=== PATIENT | male | born 1935 | race Caucasian/White ===

== ENCOUNTER 2021-04-21 15:02 | Inpatient (IN) | payer MEDICARE, BC ==
[2021-04-21] MEDS ORDERED: Sodium Chloride 0.9% 10 ML Syringe FLUSH PRN (16:23)
[2021-04-21] MEDS ORDERED: Lactated Ringers 1,000 ML IV SCH (16:30)
--- NOTE | 2021-04-21 16:37 | EDM.PDOC ---
<Daniela Garduno - Last Filed: 04/22/21 09:19> ED HPI GENERAL MEDICAL PROBLEM - General Chief Complaint: Fever Stated Complaint: [facility] Time Seen by Provider: 04/21/21 15:20 Source of Information: Reports: Patient History Limitations: Reports: No Limitations, Other (ED vital signs reveal a temp of 100.6, pulse of 103, respiratory rate 26, blood pressure 195/102, pulse ox 93% on room air.) - History of Present Illness INITIAL COMMENTS - FREE TEXT/NARRATIVE: 85-year-old male presents to the emergency department today with complaints of weakness, fever and cough that started this morning. 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 He sees Dr. Murrell, oncologist at [facility], for his cancer treatment. Approximately 1 month ago he was started on oral chemotherapy drugs, Taflinar and Mekinist. Patient states that about 4 days ago he developed urinary incontinence which is new for him. He denies any burning associated with this. He denies any recent fever or chills, nausea, vomiting or diarrhea. He denies any abdominal pain. He states he normally has issues with constipation however he did have a bowel movement today. Prior to today had been about 2 days since his previous bowel movement. He denies any black or bloody stools. States that starting about this afternoon he had new onset generalized weakness and cough. Patient states he has had his Covid vaccination. The patient's primary care physician is Dr. Martinez, at [facility]. - Related Data Allergies Allergy/AdvReac Type Severity Reaction Status Date / Time No Known Allergies Allergy Verified 04/22/21 01:57 Home Meds: Home Meds Aspirin 81 mg PO DAILY 04/21/21 [History] Dabrafenib Mesylate [Tafinlar] 150 mg PO BID 04/21/21 [History] Famotidine 40 mg PO DAILY 04/21/21 [History] Levothyroxine 175 mcg PO ACBREAKFAST 04/21/21 [History] Trametinib Dimethyl Sulfoxide [Mekinist] 2 mg PO DAILY 04/21/21 [History] Past Medical History Oncologic (Cancer) History: Reports: Metastatic, Thyroid - Past Surgical History Endocrine Surgical History: Reports: Thyroid Biopsy Musculoskeletal Surgical History: Reports: Hip Replacement, Knee Replacement, Ot her (See Below) Other Musculoskeletal Surgeries/Procedures:: ankle surgery Social & Family History - Tobacco Use Tobacco Use Status *Q: Never Tobacco User Second Hand Smoke Exposure: No - Recreational Drug Use Recreational Drug Use: No ED ROS GENERAL - Review of Systems Review Of Systems: See Below Constitutional: Reports: Fever, Chills, Weakness. Denies: Decreased Appetite HEENT: Reports: No Symptoms Respiratory: Reports: Shortness of Breath, Wheezing, Cough, Sputum. Denies: Pleuritic Chest Pain Cardiovascular: Reports: Dyspnea on Exertion. Denies: Chest Pain, Edema, Orthopnea, Palpitations Endocrine: Reports: No Symptoms GI/Abdominal: Reports: Constipation. Denies: Abdominal Pain, Diarrhea, Decreased Appetite, Nausea, Vomiting : Reports: Incontinence. Denies: Dysuria, Flank Pain, Frequency, Hematuria, Urgency Musculoskeletal: Reports: Other (Generalized weakness) Skin: Reports: No Symptoms Neurological: Reports: No Symptoms. Denies: Headache Psychiatric: Reports: No Symptoms Hematologic/Lymphatic: Reports: No Symptoms Immunologic: Reports: No Symptoms ED EXAM, GENERAL - Physical Exam Exam: See Below Exam Limited By: No Limitations General Appearance: Alert, WD/WN, Mild Distress Ears: Normal External Exam, Hearing Grossly Normal Nose: Normal Inspection Throat/Mouth: Normal Inspection, Normal Lips, Normal Voice, No Airway Compromise Head: Atraumatic Neck: Normal Inspection, Supple Respiratory/Chest: No Respiratory Distress, No Accessory Muscle Use, Chest Non- Tender, Rales, Rhonchi, Wheezing. No: Lungs Clear, Normal Breath Sounds Cardiovascular: Normal Peripheral Pulses, Regular Rate, Rhythm, No Edema, No Murmur (Difficult to exclude due to course lung sounds), Tachycardia Peripheral Pulses: 2+: Radial (L), Radial (R) GI/Abdominal: Normal Bowel Sounds, Soft, Non-Tender, No Distention (Male) Exam: Deferred Rectal (Males) Exam: Deferred Back Exam: Normal Inspection Extremities: Normal Inspection, Non-Tender, No Pedal Edema, Normal Capillary Refill Neurological: Alert, Oriented, Normal Cognition Psychiatric: Normal Affect, Normal Mood Skin Exam: Warm (Skin is hot to touch), Dry, Intact, Normal Color, No Rash Lymphatic: No Adenopathy Course - Vital Signs Text/Narrative:: Patient presents with new onset fever, cough, and generalized weakness that started this afternoon. Also had urinary incontinence that started 4 days ago and this is new for him. 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 Currently taking oral chemotherapy. He has had his Covid vaccine. I have ordered labs from the 1 hour septic bundle as the patient is tachycardic, tachypneic and does have a fever. - Re-Assessments/Exams Free Text/Narrative Re-Assessment/Exam: 04/21/21 16:55 Patient does have a low-grade temp of 100.6. I discussed ordering Tylenol with him and his son states that he was told there is some kind of interaction with his oral chemotherapy meds and Tylenol. I have had our hospital pharmacist look into this and she cannot find any contraindication to these meds and Tylenol. Patient will receive 650 mg of Tylenol. Departure - Departure Disposition: Admitted As Inpatient 66 Clinical Impression: Pneumonia Qualifiers: Pneumonia type: due to unspecified organism Laterality: right Lung location: lower lobe of lung Qualified Code(s): J18.9 - Pneumonia, unspecified organism - Discharge Information Sepsis Event Note (ED) - Evaluation Sepsis Screening Result: Possible Sepsis Risk <Marita Braga - Last Filed: 04/22/21 21:56> #1 Interpretation EKG Date: 04/21/21 Time: 17:42 Rhythm: NSR Rate (Beats/Min): 84 [place]: Normal P-Wave: Present QRS: RBBB (incomplete) ST-T: Normal QT: Normal EKG Interpretation Comments: multiform ventricular complexes EKG interpreted by Dr. Davila Course - Vital Signs Last Recorded V/S: Last Vital Signs Temp 98.1 F 04/22/21 14:22 Pulse 76 04/22/21 14:22 Resp 20 04/22/21 14:22 BP 148/83 H 04/22/21 14:22 Pulse Ox 94 L 04/22/21 14:22 - Orders/Labs/Meds Orders: Medication Orders Enoxaparin Sodium (Enoxaparin 40 Mg/0.4 Ml Syringe) 40 mg SUBCUT Q24H [facility] Last Admin: 04/22/21 20:45 Dose: 40 mg Documented by: Admin: 04/21/21 22:33 Dose: 40 mg Documented by: WOODROW Famotidine (Famotidine 20 Mg Tab) 20 mg PO DAILY [facility] Last Admin: 04/22/21 08:57 Dose: 20 mg Documented by: DALIA Ceftriaxone Sodium 2 gm/ (Sodium Chloride) 100 mls @ 200 mls/hr IV Q24H [facility] Last Admin: 04/22/21 16:16 Dose: 200 mls/hr Documented by: DALIA Levothyroxine Sodium (Levothyroxine 100 Mcg Tab) 100 mcg PO ACBREAKFAST [facility] Last Admin: 04/22/21 08:57 Dose: 100 mcg Documented by: DALIA Levothyroxine Sodium (Levothyroxine 75 Mcg Tab) 75 mcg PO ACBREAKFAST [facility]ONE Last Admin: 04/22/21 08:57 Dose: 75 mcg Documented by: DALIA Dabrafenib Mesylate [Tafinlar] 75 Mg Cap Ptom 0 mg PO BID [facility] Trametinib Dimethyl Sulfoxide [Mekinist] 2 Mg Tab Ptom 0 mg PO DAILY [facility] Sodium Chloride (Sodium Chloride 0.9% 10 Ml Syringe) 10 ml FLUSH ASDIRECTED PRN PRN Reason: Keep Vein Open Last Admin: 04/21/21 17:10 Dose: 10 ml Documented by: TONE Sodium Chloride (Sodium Chloride 0.9% 10 Ml Syringe) 10 ml FLUSH ASDIRECTED [facility] Last Admin: 04/21/21 18:59 Dose: 10 ml Documented by: PATTI Labs: Laboratory Tests 04/21/21 04/21/21 04/21/21 Range/Units 15:15 16:45 16:45 WBC 11.39 H (4.23-9.07) K/mm3 RBC 4.15 L (4.63-6.08) M/mm3 Hgb 11.0 L (13.7-17.5) gm/dl Hct 34.7 L (40.1-51.0) % MCV 83.6 (79.0-92.2) fl MCH 26.5 (25.7-32.2) pg MCHC 31.7 L (32.2-35.5) g/dl RDW Std Deviation 57.5 H (35.1-43.9) fL Plt Count 166 (163-337) K/mm3 MPV 9.9 (9.4-12.3) fl Neutrophils % (Manual) 83 H (40-60) % Band Neutrophils % 6 (0-10) % Lymphocytes % (Manual) 7 L (20-40) % Atypical Lymphs % 0 % Monocytes % (Manual) 4 (2-10) % Eosinophils % (Manual) 0 L (0.8-7.0) % Basophils % (Manual) 0 L (0.2-1.2) Toxic Granulation Few Platelet Estimate Adequate Anisocytosis 1+ slight Ovalocytes 1+ slight RBC Morph Comment Not Reportable PT (9.7-12.0) SECONDS INR APTT (21.7-31.4) SECONDS D-Dimer, Quantitative (0.19-0.50) mg/L Sodium 134 L (136-145) mEq/L Potassium 3.9 (3.5-5.1) mEq/L Chloride 97 L (98-107) mEq/L Carbon Dioxide 27 (21-32) mEq/L Anion Gap 13.9 (5-15) BUN 22 H (7-18) mg/dL Creatinine 1.3 (0.7-1.3) mg/dL Est Cr Clr Drug Dosing 39.98 mL/min Estimated GFR (MDRD) 52 (>60) mL/min BUN/Creatinine Ratio 16.9 (14-18) Glucose 130 H (70-99) mg/dL Lactic Acid (0.4-2.0) mmol/L Calcium 9.0 (8.5-10.1) mg/dL Total Bilirubin 0.8 (0.2-1.0) mg/dL AST 24 (15-37) U/L ALT 21 (16-63) U/L Alkaline Phosphatase 116 (46-116) U/L Troponin I 0.211 H* (0.00-0.056) ng/mL C-Reactive Protein 4.7 H* (<1.0) mg/dL NT-Pro-B Natriuret Pep (0-450) pg/mL Total Protein 6.9 (6.4-8.2) g/dl Albumin 3.1 L (3.4-5.0) g/dl Globulin 3.8 gm/dL Albumin/Globulin Ratio 0.8 L (1-2) Urine Color Yellow (Yellow) Urine Appearance Clear (Clear) Urine pH 7.0 (5.0-8.0) Ur Specific [place] 1.025 (1.005-1.030) Urine Protein 2+ H (Negative) Urine Glucose (UA) Negative (Negative) Urine Ketones Negative (Negative) Urine Occult Blood Trace-intact H (Negative) Urine Nitrite Negative (Negative) Urine Bilirubin Negative (Negative) Urine Urobilinogen 0.2 (0.2-1.0) Ur Leukocyte Esterase Negative (Negative) Urine RBC 5-10 H (0-5) /hpf Urine WBC 0-5 (0-5) /hpf Ur Squamous Epith Cells 0-5 (0-5) /hpf Urine Bacteria Occasional (FEW) /hpf Urine Mucus Not seen (FEW) /hpf SARS-CoV-2 RNA (NINA) (NEGATIVE) 04/21/21 04/21/21 04/21/21 Range/Units 16:45 16:45 16:45 WBC (4.23-9.07) K/mm3 RBC (4.63-6.08) M/mm3 Hgb (13.7-17.5) gm/dl Hct (40.1-51.0) % MCV (79.0-92.2) fl MCH (25.7-32.2) pg MCHC (32.2-35.5) g/dl RDW Std Deviation (35.1-43.9) fL Plt Count (163-337) K/mm3 MPV (9.4-12.3) fl Neutrophils % (Manual) (40-60) % Band Neutrophils % (0-10) % Lymphocytes % (Manual) (20-40) % Atypical Lymphs % % Monocytes % (Manual) (2-10) % Eosinophils % (Manual) (0.8-7.0) % Basophils % (Manual) (0.2-1.2) Toxic Granulation Platelet Estimate Anisocytosis Ovalocytes RBC Morph Comment PT 11.2 (9.7-12.0) SECONDS INR 1.05 APTT 27.2 (21.7-31.4) SECONDS D-Dimer, Quantitative 2.26 H (0.19-0.50) mg/L Sodium (136-145) mEq/L Potassium (3.5-5.1) mEq/L Chloride (98-107) mEq/L Carbon Dioxide (21-32) mEq/L Anion Gap (5-15) BUN (7-18) mg/dL Creatinine (0.7-1.3) mg/dL Est Cr Clr Drug Dosing mL/min Estimated GFR (MDRD) (>60) mL/min BUN/Creatinine Ratio (14-18) Glucose (70-99) mg/dL Lactic Acid (0.4-2.0) mmol/L Calcium (8.5-10.1) mg/dL Total Bilirubin (0.2-1.0) mg/dL AST (15-37) U/L ALT (16-63) U/L Alkaline Phosphatase (46-116) U/L Troponin I (0.00-0.056) ng/mL C-Reactive Protein (<1.0) mg/dL NT-Pro-B Natriuret Pep 2504 H (0-450) pg/mL Total Protein (6.4-8.2) g/dl Albumin (3.4-5.0) g/dl Globulin gm/dL Albumin/Globulin Ratio (1-2) Urine Color (Yellow) Urine Appearance (Clear) Urine pH (5.0-8.0) Ur Specific [place] (1.005-1.030) Urine Protein (Negative) Urine Glucose (UA) (Negative) Urine Ketones (Negative) Urine Occult Blood (Negative) Urine Nitrite (Negative) Urine Bilirubin (Negative) Urine Urobilinogen (0.2-1.0) Ur Leukocyte Esterase (Negative) Urine RBC (0-5) /hpf Urine WBC (0-5) /hpf Ur Squamous Epith Cells (0-5) /hpf Urine Bacteria (FEW) /hpf Urine Mucus (FEW) /hpf SARS-CoV-2 RNA (NINA) (NEGATIVE) 04/21/21 04/21/21 04/21/21 Range/Units 16:55 17:09 19:10 WBC (4.23-9.07) K/mm3 RBC (4.63-6.08) M/mm3 Hgb (13.7-17.5) gm/dl Hct (40.1-51.0) % MCV (79.0-92.2) fl MCH (25.7-32.2) pg MCHC (32.2-35.5) g/dl RDW Std Deviation (35.1-43.9) fL Plt Count (163-337) K/mm3 MPV (9.4-12.3) fl Neutrophils % (Manual) (40-60) % Band Neutrophils % (0-10) % Lymphocytes % (Manual) (20-40) % Atypical Lymphs % % Monocytes % (Manual) (2-10) % Eosinophils % (Manual) (0.8-7.0) % Basophils % (Manual) (0.2-1.2) Toxic Granulation Platelet Estimate Anisocytosis Ovalocytes RBC Morph Comment PT (9.7-12.0) SECONDS INR APTT (21.7-31.4) SECONDS D-Dimer, Quantitative (0.19-0.50) mg/L Sodium (136-145) mEq/L Potassium (3.5-5.1) mEq/L Chloride (98-107) mEq/L Carbon Dioxide (21-32) mEq/L Anion Gap (5-15) BUN (7-18) mg/dL Creatinine (0.7-1.3) mg/dL Est Cr Clr Drug Dosing mL/min Estimated GFR (MDRD) (>60) mL/min BUN/Creatinine Ratio (14-18) Glucose (70-99) mg/dL Lactic Acid 0.7 (0.4-2.0) mmol/L Calcium (8.5-10.1) mg/dL Total Bilirubin (0.2-1.0) mg/dL AST (15-37) U/L ALT (16-63) U/L Alkaline Phosphatase (46-116) U/L Troponin I 0.195 H* (0.00-0.056) ng/mL C-Reactive Protein (<1.0) mg/dL NT-Pro-B Natriuret Pep (0-450) pg/mL Total Protein (6.4-8.2) g/dl Albumin (3.4-5.0) g/dl Globulin gm/dL Albumin/Globulin Ratio (1-2) Urine Color (Yellow) Urine Appearance (Clear) Urine pH (5.0-8.0) Ur Specific [place] (1.005-1.030) Urine Protein (Negative) Urine Glucose (UA) (Negative) Urine Ketones (Negative) Urine Occult Blood (Negative) Urine Nitrite (Negative) Urine Bilirubin (Negative) Urine Urobilinogen (0.2-1.0) Ur Leukocyte Esterase (Negative) Urine RBC (0-5) /hpf Urine WBC (0-5) /hpf Ur Squamous Epith Cells (0-5) /hpf Urine Bacteria (FEW) /hpf Urine Mucus (FEW) /hpf SARS-CoV-2 RNA (NINA) Negative (NEGATIVE) Meds: Medications Generic Name Dose Route Start Last Admin Trade Name Damaris PRN Reason Stop Dose Admin Enoxaparin Sodium 40 mg 04/21/21 22:00 04/22/21 20:45 Enoxaparin 40 Mg/0.4 Ml Syringe SUBCUT 40 mg Q24H RAMONE Administration Famotidine 20 mg 04/22/21 09:00 04/22/21 08:57 Famotidine 20 Mg Tab PO 20 mg DAILY RAMONE Administration Ceftriaxone Sodium 2 gm/ 100 mls @ 200 mls/hr 04/22/21 17:00 04/22/21 16:16 Sodium Chloride IV 200 mls/hr Q24H RAMONE Administration Levothyroxine Sodium 100 mcg 04/22/21 09:00 04/22/21 08:57 Levothyroxine 100 Mcg Tab PO 100 mcg ACBREAKFAST RAMONE Administration Levothyroxine Sodium 75 mcg 04/22/21 09:00 04/22/21 08:57 Levothyroxine 75 Mcg Tab PO 75 mcg ACBREAKFAST RAMONE Administration Dabrafenib Mesylate 0 mg 04/22/21 21:00 [Tafinlar] 75 Mg Cap PO Ptom BID RAMONE Trametinib Dimethyl 0 mg 04/23/21 09:00 Sulfoxide [Mekinist] PO 2 Mg Tab Ptom DAILY RAMONE Sodium Chloride 10 ml 04/21/21 16:23 04/21/21 17:10 Sodium Chloride 0.9% 10 Ml Syringe FLUSH 10 ml ASDIRECTED PRN Administration Keep Vein Open Sodium Chloride 10 ml 04/21/21 19:00 04/21/21 18:59 Sodium Chloride 0.9% 10 Ml Syringe FLUSH 10 ml ASDIRECTED RAMONE Administration Discontinued Medications Generic Name Dose Route Start Last Admin Trade Name Damaris PRN Reason Stop Dose Admin Acetaminophen 650 mg 04/21/21 16:55 04/21/21 17:10 Acetaminophen 325 Mg Tab PO 04/21/21 16:56 650 mg NOW ONE Administration Enoxaparin Sodium 30 mg 04/21/21 22:00 Enoxaparin 30 Mg/0.3 Ml Syringe SUBCUT Q24H RAMONE Lactated Ringer's 1,000 mls @ 75 mls/hr 04/21/21 16:30 04/21/21 17:10 Ringers, Lactated IV 126 mls/hr ASDIRECTED RAMONE Administration Ceftriaxone Sodium 2 gm/ 100 mls @ 200 mls/hr 04/21/21 17:14 04/21/21 17:28 Sodium Chloride IV 04/21/21 17:43 200 mls/hr ONETIME ONE Administration Sodium Chloride 100 mls @ 60 mls/hr 04/21/21 19:00 04/21/21 18:59 Normal Saline IV 60 mls/hr ASDIRECTED RAMONE Administration Iopamidol 100 ml 04/21/21 18:52 04/21/21 18:59 Iopamidol 755 Mg/Ml 100 Ml Bottle IVPUSH 04/21/21 18:53 100 ml ONETIME ONE Administration - Re-Assessments/Exams Free Text/Narrative Re-Assessment/Exam: 04/21/21 17:15 Care assumed from GERI Suarez. Official radiologist read of the chest x-ray impression as follows: 1. Density within the right lung base suspicious for possible pneumonia. 2. Slight atelectasis or minimal pleural effusion within the lateral left costophrenic angle. 3. Several small nodules within the right midlung which are nonspecific but likely incidental given the patient's age. Hematology is pending, however given patient's fever, tachycardia, and chest x- ray consistent with pneumonia. I have ordered Rocephin 2 g IV to be given now. 04/21/21 18:05 Hematology was significant for WBC elevated 11.39, hemoglobin low at 11.0, D- dimer elevated at 2.26, sodium 134, chloride 97, troponin elevated at 0.211, CRP 4.7, proBNP 2504. Urinalysis was negative for infection. EKG shows a normal sinus rhythm at 84 with no signs of acute ischemia. Based on these results, patient does not meet severe sepsis criteria. Lactic acid is normal at 0.7. Results discussed with patient. He reports that at no time has he experienced chest pain. He does report that his oncologist at [facility] told him that he may possibly have cancer within his heart muscle. Given his elevated D-dimer and troponin, I have ordered a CT angiogram of the chest to rule out PE. 04/21/211949 CT angiogram of the chest impression as follows 1. Multiple small pulmonary nodules within both sides of the chest. 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 No findings of pulmonary embolism. 3. Old bilateral rib fractures which appear healed. 4. Slight fibrosis in both lung bases. Repeat troponin came back lower at 0.195. Case was discussed with Dr. Yates, the rabbler on-call at [facility] and EKG images were sent to him. He recommended echocardiogram but did not remit recommend that we continue to trend troponins. Case was discussed with hospitalist, Dr. Padilla. He is excepted the patient for admission. 04/21/21 20:03 Nursing staff updated me that patient had a small amount of blood in his underwear and around his urethra. Patient reports that this is new for him. On exam, there is no visible bleeding or lesions to the external urethral meatus. Urinalysis did show some trace occult blood and RBCs but there is no evidence of infection. We will update the hospitalist. I also discussed patient's me dications with the son. He does not have his chemo medications with him, however he would like to contact his oncologist at [facility] tomorrow morning to decide if he should continue them at this time. If it is decided that he should, he will bring them. Departure - Departure Time of Disposition: 19:50 Condition: Fair
[2021-04-21] MEDS ORDERED: Acetaminophen 325 MG Tab PO ONE (16:55)
--- NOTE | 2021-04-21 16:57 | CR ---
Chest: Portable view of the chest was obtained. Comparison: No prior chest imaging is available. Focal density is noted within the right lung base. Minimal density within the lateral left costophrenic angle is seen. Minimal nodularity is noted within the upper right lung. Upper lungs are otherwise clear. Heart size is normal. Tortuous thoracic aorta is seen. Degenerative spurring is noted within the spine. Impression: 1. Density within the right lung base suspicious for possible pneumonia. 2. Slight atelectasis or minimal pleural effusion within the lateral left costophrenic angle. 3. Several small nodules within the right midlung which are nonspecific but likely incidental given the patient's age. Diagnostic code #3
[2021-04-21] MEDS ORDERED: cefTRIAXone 2 GM in Sodium Chloride 0.9% 100 ML IV ONE (17:14)
[2021-04-21] MEDS ORDERED: Iopamidol 755 Mg/ML 100 ML Bottle IVPUSH ONE (18:52)
[2021-04-21] MEDS ORDERED: Sodium Chloride 0.9% 100 ML IV SCH (19:00)
[2021-04-21] MEDS ORDERED: Sodium Chloride 0.9% 10 ML Syringe FLUSH SCH (19:00)
--- NOTE | 2021-04-21 19:11 | CT ---
CT chest Technique: Multiple axial sections through the chest were obtained. Intravenous contrast was utilized. Study has been performed as a pulmonary angiogram protocol. Findings: Pulmonary arteries are well-opacified. No filling defects are seen to indicate pulmonary embolism. Thoracic aorta shows no aneurysm. Atherosclerotic calcification is seen within the thoracic aorta. Mediastinum shows small lymph nodes which are felt to be within normal limits. No axillary adenopathy is seen. Mild coronary artery calcification seen. No pericardial thickening is seen. Small portion of the visualized upper abdominal structures show nothing acute. Multiple small pulmonary nodules are seen within both lung bases as well as within the upper lungs. These all measure less than 1 cm. Mild focal density within the right lung base is seen most likely representing an area of fibrosis. Bone window settings were reviewed which show no acute osseous finding. Old bilateral rib fractures are noted. Scattered degenerative change is seen within the spine. Impression: 1. Multiple small pulmonary nodules within both sides of the chest. These are nonspecific but given that these are fairly similar in size most likely represent diffuse granulomatous disease. 2. No findings of pulmonary embolism. 3. Old bilateral rib fractures which appear healed. 4. Slight fibrosis within both lung bases. Diagnostic code #3
[2021-04-21] MEDS ORDERED: Enoxaparin 30 MG/0.3 ML Syringe SUBCUT SCH (22:00)
[2021-04-21] MEDS: Enoxaparin 40 MG/0.4 ML Syringe SUBCUT SCH (22:33)
--- NOTE | 2021-04-22 06:50 | PCM.HP.2 ---
H&P History of Present Illness - General Date of Service: 04/22/21 Admit Problem/Dx: Admission Diagnosis/Problem Admission Diagnosis/Problem Pneumonia Source of Information: Patient History Limitations: Reports: No Limitations - History of Present Illness Initial Comments - Free Text/Narative: The patient is an 85-year-old gentleman who had presented to the emergency department via EMS out of concern for fever and fatigue. 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 The patient has been started on chemotherapy orally. The patient had denied any cough or production of sputum. The patient has no other specific aggravating or relieving factors. Onset of Symptoms: Reports: Gradual Duration of Symptoms: Reports: Day(s): Location: Reports: Generalized Severity: Mild Improves with: Reports: Rest Worsens with: Reports: Movement Context: Reports: Other (Thyroid cancer) Associated Symptoms: Reports: Malaise, Weakness - Related Data Allergies/Adverse Reactions: Allergies Allergy/AdvReac Type Severity Reaction Status Date / Time No Known Allergies Allergy Verified 04/22/21 01:57 Home Medications: Home Meds Aspirin 81 mg PO DAILY 04/21/21 [History] Dabrafenib Mesylate [Tafinlar] 150 mg PO BID 04/21/21 [History] Famotidine 40 mg PO DAILY 04/21/21 [History] Levothyroxine 175 mcg PO ACBREAKFAST 04/21/21 [History] Trametinib Dimethyl Sulfoxide [Mekinist] 2 mg PO DAILY 04/21/21 [History] Past Medical History HEENT History: Reports: None Cardiovascular History: Reports: None Respiratory History: Reports: None Gastrointestinal History: Reports: None Genitourinary History: Reports: None Musculoskeletal History: Reports: None Neurological History: Reports: None Psychiatric History: Reports: None Endocrine/Metabolic History: Reports: Hypothyroidism Hematologic History: Reports: None Immunologic History: Reports: None Oncologic (Cancer) History: Reports: Metastatic, Thyroid Dermatologic History: Reports: None - Past Surgical History Head Surgeries/Procedures: Reports: Other (See Below) Endocrine Surgical History: Reports: Thyroid Biopsy, Other (See Below) (9 different thyroid related surgical dissections) Musculoskeletal Surgical History: Reports: Hip Replacement, Knee Replacement, Other (See Below) Other Musculoskeletal Surgeries/Procedures:: ankle surgery Social & Family History - Tobacco Use Tobacco Use Status *Q: Never Tobacco User Second Hand Smoke Exposure: No - Recreational Drug Use Recreational Drug Use: No - Living Situation & Occupation Living situation: Reports: H&P Review of Systems - Review of Systems: Review Of Systems: See Below General: Reports: Malaise, Weakness, Fatigue HEENT: Reports: No Symptoms Pulmonary: Reports: Shortness of Breath Cardiovascular: Reports: No Symptoms Gastrointestinal: Reports: No Symptoms Genitourinary: Reports: No Symptoms Musculoskeletal: Reports: No Symptoms Skin: Reports: No Symptoms Psychiatric: Reports: No Symptoms Neurological: Reports: No Symptoms Hematologic/Lymphatic: Reports: No Symptoms Immunologic: Reports: No Symptoms Exam - Exam Exam: See Below - Vital Signs Vital Signs: Last Vital Signs Temp 36.4 C 04/22/21 03:18 Pulse 73 04/22/21 03:18 Resp 20 04/22/21 03:18 BP 148/84 H 04/22/21 03:18 Pulse Ox 95 04/22/21 03:18 Weight: 68.039 kg - Exam Quality Assessment: No: Supplemental Oxygen General: Alert, Oriented HEENT: Conjunctiva Clear, EACs Clear, EOMI, Hearing Intact, PERRLA. No: Mucosa Moist & [place] (Dry) Neck: Trachea Midline. No: Supple (Multiple thyroid surgeries with dissection) Lungs: Crackles, Rales Cardiovascular: Regular Rate, Regular Rhythm GI/Abdominal Exam: Normal Bowel Sounds, Soft, Non-Tender, No Distention (Male) Exam: Deferred Rectal (Males) Exam: Deferred Back Exam: Normal Inspection, Full Range of Motion Extremities: Normal Inspection, No Pedal Edema Skin: Warm, Dry, Intact Neuro Extensive - Motor, Sensory, Reflexes: CN II-XII Intact Psychiatric: Alert, Normal Affect - Patient Data Lab Results Last 24 hrs: Laboratory Results - last 24 hr 04/21/21 04/21/21 04/21/21 Range/Units 15:15 16:45 16:45 WBC 11.39 H (4.23-9.07) K/mm3 RBC 4.15 L (4.63-6.08) M/mm3 Hgb 11.0 L (13.7-17.5) gm/dl Hct 34.7 L (40.1-51.0) % MCV 83.6 (79.0-92.2) fl MCH 26.5 (25.7-32.2) pg MCHC 31.7 L (32.2-35.5) g/dl RDW Std Deviation 57.5 H (35.1-43.9) fL Plt Count 166 (163-337) K/mm3 MPV 9.9 (9.4-12.3) fl Neutrophils % (Manual) 83 H (40-60) % Band Neutrophils % 6 (0-10) % Lymphocytes % (Manual) 7 L (20-40) % Atypical Lymphs % 0 % Monocytes % (Manual) 4 (2-10) % Eosinophils % (Manual) 0 L (0.8-7.0) % Basophils % (Manual) 0 L (0.2-1.2) Toxic Granulation Few Platelet Estimate Adequate Anisocytosis 1+ slight Ovalocytes 1+ slight RBC Morph Comment Not Reportable PT (9.7-12.0) SECONDS INR APTT (21.7-31.4) SECONDS D-Dimer, Quantitative (0.19-0.50) mg/L Sodium 134 L (136-145) mEq/L Potassium 3.9 (3.5-5.1) mEq/L Chloride 97 L (98-107) mEq/L Carbon Dioxide 27 (21-32) mEq/L Anion Gap 13.9 (5-15) BUN 22 H (7-18) mg/dL Creatinine 1.3 (0.7-1.3) mg/dL Est Cr Clr Drug Dosing 39.98 mL/min Estimated GFR (MDRD) 52 (>60) mL/min BUN/Creatinine Ratio 16.9 (14-18) Glucose 130 H (70-99) mg/dL Lactic Acid (0.4-2.0) mmol/L Calcium 9.0 (8.5-10.1) mg/dL Total Bilirubin 0.8 (0.2-1.0) mg/dL AST 24 (15-37) U/L ALT 21 (16-63) U/L Alkaline Phosphatase 116 (46-116) U/L Troponin I 0.211 H* (0.00-0.056) ng/mL C-Reactive Protein 4.7 H* (<1.0) mg/dL NT-Pro-B Natriuret Pep (0-450) pg/mL Total Protein 6.9 (6.4-8.2) g/dl Albumin 3.1 L (3.4-5.0) g/dl Globulin 3.8 gm/dL Albumin/Globulin Ratio 0.8 L (1-2) Urine Color Yellow (Yellow) Urine Appearance Clear (Clear) Urine pH 7.0 (5.0-8.0) Ur Specific [place] 1.025 (1.005-1.030) Urine Protein 2+ H (Negative) Urine Glucose (UA) Negative (Negative) Urine Ketones Negative (Negative) Urine Occult Blood Trace-intact H (Negative) Urine Nitrite Negative (Negative) Urine Bilirubin Negative (Negative) Urine Urobilinogen 0.2 (0.2-1.0) Ur Leukocyte Esterase Negative (Negative) Urine RBC 5-10 H (0-5) /hpf Urine WBC 0-5 (0-5) /hpf Ur Squamous Epith Cells 0-5 (0-5) /hpf Urine Bacteria Occasional (FEW) /hpf Urine Mucus Not seen (FEW) /hpf SARS-CoV-2 RNA (NINA) (NEGATIVE) 04/21/21 04/21/21 04/21/21 Range/Units 16:45 16:45 16:45 WBC (4.23-9.07) K/mm3 RBC (4.63-6.08) M/mm3 Hgb (13.7-17.5) gm/dl Hct (40.1-51.0) % MCV (79.0-92.2) fl MCH (25.7-32.2) pg MCHC (32.2-35.5) g/dl RDW Std Deviation (35.1-43.9) fL Plt Count (163-337) K/mm3 MPV (9.4-12.3) fl Neutrophils % (Manual) (40-60) % Band Neutrophils % (0-10) % Lymphocytes % (Manual) (20-40) % Atypical Lymphs % % Monocytes % (Manual) (2-10) % Eosinophils % (Manual) (0.8-7.0) % Basophils % (Manual) (0.2-1.2) Toxic Granulation Platelet Estimate Anisocytosis Ovalocytes RBC Morph Comment PT 11.2 (9.7-12.0) SECONDS INR 1.05 APTT 27.2 (21.7-31.4) SECONDS D-Dimer, Quantitative 2.26 H (0.19-0.50) mg/L Sodium (136-145) mEq/L Potassium (3.5-5.1) mEq/L Chloride (98-107) mEq/L Carbon Dioxide (21-32) mEq/L Anion Gap (5-15) BUN (7-18) mg/dL Creatinine (0.7-1.3) mg/dL Est Cr Clr Drug Dosing mL/min Estimated GFR (MDRD) (>60) mL/min BUN/Creatinine Ratio (14-18) Glucose (70-99) mg/dL Lactic Acid (0.4-2.0) mmol/L Calcium (8.5-10.1) mg/dL Total Bilirubin (0.2-1.0) mg/dL AST (15-37) U/L ALT (16-63) U/L Alkaline Phosphatase (46-116) U/L Troponin I (0.00-0.056) ng/mL C-Reactive Protein (<1.0) mg/dL NT-Pro-B Natriuret Pep 2504 H (0-450) pg/mL Total Protein (6.4-8.2) g/dl Albumin (3.4-5.0) g/dl Globulin gm/dL Albumin/Globulin Ratio (1-2) Urine Color (Yellow) Urine Appearance (Clear) Urine pH (5.0-8.0) Ur Specific [place] (1.005-1.030) Urine Protein (Negative) Urine Glucose (UA) (Negative) Urine Ketones (Negative) Urine Occult Blood (Negative) Urine Nitrite (Negative) Urine Bilirubin (Negative) Urine Urobilinogen (0.2-1.0) Ur Leukocyte Esterase (Negative) Urine RBC (0-5) /hpf Urine WBC (0-5) /hpf Ur Squamous Epith Cells (0-5) /hpf Urine Bacteria (FEW) /hpf Urine Mucus (FEW) /hpf SARS-CoV-2 RNA (NINA) (NEGATIVE) 04/21/21 04/21/21 04/21/21 Range/Units 16:55 17:09 19:10 WBC (4.23-9.07) K/mm3 RBC (4.63-6.08) M/mm3 Hgb (13.7-17.5) gm/dl Hct (40.1-51.0) % MCV (79.0-92.2) fl MCH (25.7-32.2) pg MCHC (32.2-35.5) g/dl RDW Std Deviation (35.1-43.9) fL Plt Count (163-337) K/mm3 MPV (9.4-12.3) fl Neutrophils % (Manual) (40-60) % Band Neutrophils % (0-10) % Lymphocytes % (Manual) (20-40) % Atypical Lymphs % % Monocytes % (Manual) (2-10) % Eosinophils % (Manual) (0.8-7.0) % Basophils % (Manual) (0.2-1.2) Toxic Granulation Platelet Estimate Anisocytosis Ovalocytes RBC Morph Comment PT (9.7-12.0) SECONDS INR APTT (21.7-31.4) SECONDS D-Dimer, Quantitative (0.19-0.50) mg/L Sodium (136-145) mEq/L Potassium (3.5-5.1) mEq/L Chloride (98-107) mEq/L Carbon Dioxide (21-32) mEq/L Anion Gap (5-15) BUN (7-18) mg/dL Creatinine (0.7-1.3) mg/dL Est Cr Clr Drug Dosing mL/min Estimated GFR (MDRD) (>60) mL/min BUN/Creatinine Ratio (14-18) Glucose (70-99) mg/dL Lactic Acid 0.7 (0.4-2.0) mmol/L Calcium (8.5-10.1) mg/dL Total Bilirubin (0.2-1.0) mg/dL AST (15-37) U/L ALT (16-63) U/L Alkaline Phosphatase (46-116) U/L Troponin I 0.195 H* (0.00-0.056) ng/mL C-Reactive Protein (<1.0) mg/dL NT-Pro-B Natriuret Pep (0-450) pg/mL Total Protein (6.4-8.2) g/dl Albumin (3.4-5.0) g/dl Globulin gm/dL Albumin/Globulin Ratio (1-2) Urine Color (Yellow) Urine Appearance (Clear) Urine pH (5.0-8.0) Ur Specific [place] (1.005-1.030) Urine Protein (Negative) Urine Glucose (UA) (Negative) Urine Ketones (Negative) Urine Occult Blood (Negative) Urine Nitrite (Negative) Urine Bilirubin (Negative) Urine Urobilinogen (0.2-1.0) Ur Leukocyte Esterase (Negative) Urine RBC (0-5) /hpf Urine WBC (0-5) /hpf Ur Squamous Epith Cells (0-5) /hpf Urine Bacteria (FEW) /hpf Urine Mucus (FEW) /hpf SARS-CoV-2 RNA (NINA) Negative (NEGATIVE) 04/22/21 04/22/21 Range/Units 00:11 05:45 WBC 7.54 (4.23-9.07) K/mm3 RBC 4.22 L (4.63-6.08) M/mm3 Hgb 11.0 L (13.7-17.5) gm/dl Hct 35.6 L (40.1-51.0) % MCV 84.4 (79.0-92.2) fl MCH 26.1 (25.7-32.2) pg MCHC 30.9 L (32.2-35.5) g/dl RDW Std Deviation 58.5 H (35.1-43.9) fL Plt Count 171 (163-337) K/mm3 MPV 10.1 (9.4-12.3) fl Neutrophils % (Manual) (40-60) % Band Neutrophils % (0-10) % Lymphocytes % (Manual) (20-40) % Atypical Lymphs % % Monocytes % (Manual) (2-10) % Eosinophils % (Manual) (0.8-7.0) % Basophils % (Manual) (0.2-1.2) Toxic Granulation Platelet Estimate Anisocytosis Ovalocytes RBC Morph Comment PT (9.7-12.0) SECONDS INR APTT (21.7-31.4) SECONDS D-Dimer, Quantitative (0.19-0.50) mg/L Sodium (136-145) mEq/L Potassium (3.5-5.1) mEq/L Chloride (98-107) mEq/L Carbon Dioxide (21-32) mEq/L Anion Gap (5-15) BUN (7-18) mg/dL Creatinine (0.7-1.3) mg/dL Est Cr Clr Drug Dosing mL/min Estimated GFR (MDRD) (>60) mL/min BUN/Creatinine Ratio (14-18) Glucose (70-99) mg/dL Lactic Acid (0.4-2.0) mmol/L Calcium (8.5-10.1) mg/dL Total Bilirubin (0.2-1.0) mg/dL AST (15-37) U/L ALT (16-63) U/L Alkaline Phosphatase (46-116) U/L Troponin I 0.198 H* (0.00-0.056) ng/mL C-Reactive Protein (<1.0) mg/dL NT-Pro-B Natriuret Pep (0-450) pg/mL Total Protein (6.4-8.2) g/dl Albumin (3.4-5.0) g/dl Globulin gm/dL Albumin/Globulin Ratio (1-2) Urine Color (Yellow) Urine Appearance (Clear) Urine pH (5.0-8.0) Ur Specific [place] (1.005-1.030) Urine Protein (Negative) Urine Glucose (UA) (Negative) Urine Ketones (Negative) Urine Occult Blood (Negative) Urine Nitrite (Negative) Urine Bilirubin (Negative) Urine Urobilinogen (0.2-1.0) Ur Leukocyte Esterase (Negative) Urine RBC (0-5) /hpf Urine WBC (0-5) /hpf Ur Squamous Epith Cells (0-5) /hpf Urine Bacteria (FEW) /hpf Urine Mucus (FEW) /hpf SARS-CoV-2 RNA (NINA) (NEGATIVE) Result Diagrams: 04/22/21 05:45 04/22/21 05:45 Sepsis Event Note - Evaluation Sepsis Screening Result: No Definite Risk - Focused Exam Vital Signs: Vital Signs Temp Pulse Resp BP Pulse Ox 04/22/21 03:18 36.4 C 73 20 148/84 H 95 04/21/21 22:52 36.4 C 82 20 140/67 94 L 04/21/21 21:06 36.6 C 69 20 117/72 95 - Problem List (1) Pneumonia SNOMED Code(s): 088836383 ICD Code: J18.9 - PNEUMONIA, UNSPECIFIED ORGANISM Status: Acute Current Visit: Yes Qualifiers: Pneumonia type: due to unspecified organism Laterality: right Lung location: lower lobe of lung Qualified Code(s): J18.9 - Pneumonia, unspecified organism (2) Thyroid cancer SNOMED Code(s): 055749186 ICD Code: C73 - MALIGNANT NEOPLASM OF THYROID GLAND Status: Chronic Priority: High Current Visit: Yes Problem List Initiated/Reviewed/Updated: Yes Orders Last 24hrs: Active Orders 24 hr Category Date Time Status Admission Status [Patient Status] [ADT] Routine ADT 04/21/21 23:35 Active Activity as Tolerated [RC] .Routine Care 04/21/21 21:43 Active Blood Pressure Mgt: Sepsis [RC] [id number] Care 04/21/21 16:26 Active Oxygen Therapy Adult [Oxygen Therapy] [RC] ASDIRECTED Care 04/21/21 21:41 Active Regular Diet [DIET] Diet 04/22/21 Breakfast Active CMP [COMPREHENSIVE METABOLIC PN,CMP] [CHEM] Routine Lab 04/22/21 05:45 Received CULTURE BLOOD [BC] Stat Lab 04/21/21 16:45 Received CULTURE BLOOD [BC] Stat Lab 04/21/21 16:55 Received CULTURE SPUTUM + SMEAR [RM] Stat Lab 04/21/21 16:23 Ordered TROPONIN I [CHEM] Routine Lab 04/22/21 05:45 Received Enoxaparin [Lovenox] Med 04/21/21 22:00 Active 40 mg SUBCUT Q24H Sodium Chloride 0.9% [Saline Flush] Med 04/21/21 19:00 Active 10 ml FLUSH ASDIRECTED Sodium Chloride 0.9% [Saline Flush] Med 04/21/21 16:23 Active 10 ml FLUSH ASDIRECTED PRN cefTRIAXone [Rocephin] 2 gm Med 04/22/21 17:00 Active Sodium Chloride 0.9% [Normal Saline] 100 ml IV Q24H Blood Culture x2 Reflex Set [OM.PC] Stat Oth 04/21/21 16:24 Ordered Saline Lock Insert [OM.PC] Stat Oth 04/21/21 16:24 Ordered Code Status [Resuscitation Status] Routine Resus Stat 04/21/21 23:12 Ordered EKG 12 Lead [EK] Stat Ther 04/21/21 16:23 Ordered Medication Orders Enoxaparin Sodium (Enoxaparin 40 Mg/0.4 Ml Syringe) 40 mg SUBCUT Q24H RAMONE Last Admin: 04/21/21 22:33 Dose: 40 mg Documented by: ALDOROB Ceftriaxone Sodium 2 gm/ (Sodium Chloride) 100 mls @ 200 mls/hr IV Q24H RAMONE Sodium Chloride (Sodium Chloride 0.9% 10 Ml Syringe) 10 ml FLUSH ASDIRECTED PRN PRN Reason: Keep Vein Open Last Admin: 04/21/21 17:10 Dose: 10 ml Documented by: TONE Sodium Chloride (Sodium Chloride 0.9% 10 Ml Syringe) 10 ml FLUSH ASDIRECTED RAMONE Last Admin: 04/21/21 18:59 Dose: 10 ml Documented by: PATTI Assessment/Plan Comment:: The patient is an 85-year-old gentleman who had been admitted to acute hospitalization secondary to right lower lobe pneumonia. The patient has been started on ceftriaxone and this will be continued and adjusted as needed as the patient has been taking chemotherapy medications for his thyroid cancer. The patient's chemotherapy medications and the patient's Synthroid has been restarted. The patient will have regular diet as tolerated. I have also ordered physical therapy and Occupational Therapy to assess the patient. Repeat laboratory studies have been ordered for the morning. DVT prophylaxis is accomplished with Lovenox at 40 mg subcu daily. The patient has been encouraged to ambulate. He should be appropriate for discharge in 1 to 2 days. The patient is also in a full resuscitation code and is will be continued. - Mortality Measure Prognosis:: Good
[2021-04-22] MEDS: Famotidine 20 MG Tab PO SCH (08:57)
[2021-04-22] MEDS: Levothyroxine 100 MCG Tab PO SCH (08:57)
[2021-04-22] MEDS: Levothyroxine 75 MCG Tab PO SCH (08:57)
[2021-04-22] MEDS: cefTRIAXone 2 GM in Sodium Chloride 0.9% 100 ML IV SCH (16:16)
[2021-04-22] MEDS: Enoxaparin 40 MG/0.4 ML Syringe SUBCUT SCH ×2 (20:45→23:27)
[2021-04-22] MEDS ORDERED: DABRAFENIB MESYLATE 75 MG PO SCH (21:00)
[2021-04-23] MEDS: Levothyroxine 100 MCG Tab PO SCH (05:44)
[2021-04-23] MEDS: Levothyroxine 75 MCG Tab PO SCH (05:44)
--- NOTE | 2021-04-23 07:59 | PCM.PN ---
- General Info Date of Service: 04/23/21 Admission Dx/Problem (Free Text): Admission Diagnosis/Problem Admission Diagnosis/Problem Pneumonia, RLL, on chemotherapy Subjective Update: The patient is an 85-year-old gentleman who has been admitted to acute hospitalization for right lower lobe pneumonia. 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 The patient today is doing much better he says no fever or chills. Patient has been tolerating his diet. He says that he is breathing better. Functional Status: Reports: Pain Controlled, Tolerating Diet - Review of Systems General: Reports: Weakness, Fatigue HEENT: Reports: No Symptoms Pulmonary: Reports: Cough Cardiovascular: Reports: No Symptoms Gastrointestinal: Reports: No Symptoms Genitourinary: Reports: No Symptoms Musculoskeletal: Reports: No Symptoms Skin: Reports: No Symptoms Neurological: Reports: No Symptoms Psychiatric: Reports: No Symptoms - Patient Data Vitals - Most Recent: Last Vital Signs Temp 36.9 C 04/23/21 04:19 Pulse 84 04/23/21 04:19 Resp 18 04/23/21 04:19 BP 144/88 H 04/23/21 05:45 Pulse Ox 92 L 04/23/21 04:19 Weight - Most Recent: 67.903 kg I&O - Last 24 Hours: Intake & Output 04/22/21 04/23/21 04/23/21 22:59 06:59 14:59 Intake Total 1040 300 Output Total 800 775 Balance 240 -475 Lab Results Last 24 Hours: Laboratory Results - last 24 hr 04/22/21 04/23/21 04/23/21 Range/Units 10:52 04:42 04:42 WBC 4.77 (4.23-9.07) K/mm3 RBC 4.01 L (4.63-6.08) M/mm3 Hgb 10.5 L (13.7-17.5) gm/dl Hct 33.3 L (40.1-51.0) % MCV 83.0 (79.0-92.2) fl MCH 26.2 (25.7-32.2) pg MCHC 31.5 L (32.2-35.5) g/dl RDW Std Deviation 56.5 H (35.1-43.9) fL Plt Count 146 L (163-337) K/mm3 MPV 10.2 (9.4-12.3) fl Neut % (Auto) 63.1 (34.0-67.9) % Lymph % (Auto) 16.8 L (21.8-53.1) % [place] % (Auto) 14.9 H (5.3-12.2) % Eos % (Auto) 4.8 (0.8-7.0) Baso % (Auto) 0.0 L (0.1-1.2) % Neut # (Auto) 3.01 (1.78-5.38) K/mm3 Lymph # (Auto) 0.80 L (1.32-3.57) K/mm3 [place] # (Auto) 0.71 (0.30-0.82) K/mm3 Eos # (Auto) 0.23 (0.04-0.54) K/mm3 Baso # (Auto) 0.00 L (0.01-0.08) K/mm3 Manual Slide Review Abnormal smear Sodium 137 (136-145) mEq/L Potassium 3.9 (3.5-5.1) mEq/L Chloride 102 (98-107) mEq/L Carbon Dioxide 28 (21-32) mEq/L Anion Gap 10.9 (5-15) BUN 20 H (7-18) mg/dL Creatinine 1.1 (0.7-1.3) mg/dL Est Cr Clr Drug Dosing 47.15 mL/min Estimated GFR (MDRD) > 60 (>60) mL/min BUN/Creatinine Ratio 18.2 H (14-18) Glucose 124 H (70-99) mg/dL Calcium 8.2 L (8.5-10.1) mg/dL Magnesium 2.0 (1.8-2.4) mg/dL Total Bilirubin 0.4 (0.2-1.0) mg/dL AST 22 (15-37) U/L ALT 18 (16-63) U/L Alkaline Phosphatase 100 (46-116) U/L Troponin I 0.194 H* (0.00-0.056) ng/mL C-Reactive Protein 6.1 H* (<1.0) mg/dL Total Protein 6.0 L (6.4-8.2) g/dl Albumin 2.7 L (3.4-5.0) g/dl Globulin 3.3 gm/dL Albumin/Globulin Ratio 0.8 L (1-2) Jose Results Last 24 Hours: Microbiology 04/21/21 16:55 Aerobic Blood Culture - Preliminary Blood - Venous NO GROWTH AFTER 1 DAY Anaerobic Blood Culture - Preliminary NO GROWTH AFTER 1 DAY 04/21/21 16:45 Aerobic Blood Culture - Preliminary Blood - Venous - Lab Draw NO GROWTH AFTER 1 DAY Anaerobic Blood Culture - Preliminary NO GROWTH AFTER 1 DAY 04/22/21 09:03 Gram Stain - Preliminary Sputum - Expectorated Med Orders - Current: Current Medications Enoxaparin Sodium (Enoxaparin 40 Mg/0.4 Ml Syringe) 40 mg SUBCUT Q24H [facility] Last Admin: 04/22/21 23:27 Dose: Not Given Documented by: Famotidine (Famotidine 20 Mg Tab) 20 mg PO DAILY [facility] Last Admin: 04/22/21 08:57 Dose: 20 mg Documented by: Ceftriaxone Sodium 2 gm/ (Sodium Chloride) 100 mls @ 200 mls/hr IV Q24H [facility] Last Admin: 04/22/21 16:16 Dose: 200 mls/hr Documented by: Levothyroxine Sodium (Levothyroxine 100 Mcg Tab) 100 mcg PO ACBREAKFAST [facility] Last Admin: 04/23/21 05:44 Dose: 100 mcg Documented by: Levothyroxine Sodium (Levothyroxine 75 Mcg Tab) 75 mcg PO ACBREAKFAST [facility] Last Admin: 04/23/21 05:44 Dose: 75 mcg Documented by: Dabrafenib Mesylate [Tafinlar] 75 Mg Cap Ptom 0 mg PO BID [facility] Last Admin: 04/22/21 22:45 Dose: 150 mg Documented by: Trametinib Dimethyl Sulfoxide [Mekinist] 2 Mg Tab Ptom 0 mg PO DAILY [facility] Sodium Chloride (Sodium Chloride 0.9% 10 Ml Syringe) 10 ml FLUSH ASDIRECTED PRN PRN Reason: Keep Vein Open Last Admin: 04/21/21 17:10 Dose: 10 ml Documented by: Sodium Chloride (Sodium Chloride 0.9% 10 Ml Syringe) 10 ml FLUSH ASDIRECTED [facility] Last Admin: 04/21/21 18:59 Dose: 10 ml Documented by: Discontinued Medications Acetaminophen (Acetaminophen 325 Mg Tab) 650 mg PO NOW ONE Stop: 04/21/21 16:56 Last Admin: 04/21/21 17:10 Dose: 650 mg Documented by: Enoxaparin Sodium (Enoxaparin 30 Mg/0.3 Ml Syringe) 30 mg SUBCUT Q24H [facility] Lactated Ringer's (Ringers, Lactated) 1,000 mls @ 75 mls/hr IV ASDIRECTED [facility] Last Admin: 04/21/21 17:10 Dose: 126 mls/hr Documented by: Ceftriaxone Sodium 2 gm/ (Sodium Chloride) 100 mls @ 200 mls/hr IV ONETIME ONE Stop: 04/21/21 17:43 Last Admin: 04/21/21 17:28 Dose: 200 mls/hr Documented by: Sodium Chloride (Normal Saline) 100 mls @ 60 mls/hr IV ASDIRECTED [facility] Last Admin: 04/21/21 18:59 Dose: 60 mls/hr Documented by: Iopamidol (Iopamidol 755 Mg/Ml 100 Ml Bottle) 100 ml IVPUSH ONETIME ONE Stop: 04/21/21 18:53 Last Admin: 04/21/21 18:59 Dose: 100 ml Documented by: - Exam Quality Assessment: DVT Prophylaxis. No: Supplemental Oxygen General: Alert, Oriented, Cooperative HEENT: Pupils Equal, Pupils Reactive, EOMI. No: Mucous Membr. Moist/[place] (Dry) Neck: Supple, Trachea Midline Lungs: Normal Respiratory Effort, Rales ([place]) Cardiovascular: Regular Rate, Regular Rhythm GI/Abdominal Exam: Normal Bowel Sounds, Soft, No Distention (Male) Exam: Deferred Back Exam: Normal Inspection (Age-appropriate), Full Range of Motion Extremities: Normal Inspection, No Pedal Edema Skin: Warm, Dry, Intact Neurological: No New Focal Deficit Psy/Mental Status: Alert, Normal Affect, Normal Mood - Patient Data Lab Results Last 24 hrs: Laboratory Results - last 24 hr 04/22/21 04/23/21 04/23/21 Range/Units 10:52 04:42 04:42 WBC 4.77 (4.23-9.07) K/mm3 RBC 4.01 L (4.63-6.08) M/mm3 Hgb 10.5 L (13.7-17.5) gm/dl Hct 33.3 L (40.1-51.0) % MCV 83.0 (79.0-92.2) fl MCH 26.2 (25.7-32.2) pg MCHC 31.5 L (32.2-35.5) g/dl RDW Std Deviation 56.5 H (35.1-43.9) fL Plt Count 146 L (163-337) K/mm3 MPV 10.2 (9.4-12.3) fl Neut % (Auto) 63.1 (34.0-67.9) % Lymph % (Auto) 16.8 L (21.8-53.1) % [place] % (Auto) 14.9 H (5.3-12.2) % Eos % (Auto) 4.8 (0.8-7.0) Baso % (Auto) 0.0 L (0.1-1.2) % Neut # (Auto) 3.01 (1.78-5.38) K/mm3 Lymph # (Auto) 0.80 L (1.32-3.57) K/mm3 [place] # (Auto) 0.71 (0.30-0.82) K/mm3 Eos # (Auto) 0.23 (0.04-0.54) K/mm3 Baso # (Auto) 0.00 L (0.01-0.08) K/mm3 Manual Slide Review Abnormal smear Sodium 137 (136-145) mEq/L Potassium 3.9 (3.5-5.1) mEq/L Chloride 102 (98-107) mEq/L Carbon Dioxide 28 (21-32) mEq/L Anion Gap 10.9 (5-15) BUN 20 H (7-18) mg/dL Creatinine 1.1 (0.7-1.3) mg/dL Est Cr Clr Drug Dosing 47.15 mL/min Estimated GFR (MDRD) > 60 (>60) mL/min BUN/Creatinine Ratio 18.2 H (14-18) Glucose 124 H (70-99) mg/dL Calcium 8.2 L (8.5-10.1) mg/dL Magnesium 2.0 (1.8-2.4) mg/dL Total Bilirubin 0.4 (0.2-1.0) mg/dL AST 22 (15-37) U/L ALT 18 (16-63) U/L Alkaline Phosphatase 100 (46-116) U/L Troponin I 0.194 H* (0.00-0.056) ng/mL C-Reactive Protein 6.1 H* (<1.0) mg/dL Total Protein 6.0 L (6.4-8.2) g/dl Albumin 2.7 L (3.4-5.0) g/dl Globulin 3.3 gm/dL Albumin/Globulin Ratio 0.8 L (1-2) Result Diagrams: 04/23/21 04:42 04/23/21 04:42 Jose Results Last 24 hrs: Microbiology 04/21/21 16:55 Aerobic Blood Culture - Preliminary Blood - Venous NO GROWTH AFTER 1 DAY Anaerobic Blood Culture - Preliminary NO GROWTH AFTER 1 DAY 04/21/21 16:45 Aerobic Blood Culture - Preliminary Blood - Venous - Lab Draw NO GROWTH AFTER 1 DAY Anaerobic Blood Culture - Preliminary NO GROWTH AFTER 1 DAY 04/22/21 09:03 Gram Stain - Preliminary Sputum - Expectorated Sepsis Event Note - Evaluation Sepsis Screening Result: No Definite Risk - Focused Exam Vital Signs: Vital Signs Temp Pulse Resp BP Pulse Ox 04/23/21 05:45 144/88 H 04/23/21 04:19 36.9 C 84 18 92 L - Problem List & Annotations (1) Pneumonia SNOMED Code(s): 804234230 Code(s): J18.9 - PNEUMONIA, UNSPECIFIED ORGANISM Status: Acute Priority: High Current Visit: Yes Qualifiers: Pneumonia type: due to unspecified organism Laterality: right Lung location: lower lobe of lung Qualified Code(s): J18.9 - Pneumonia, unspecified organism (2) Thyroid cancer SNOMED Code(s): 371971383 Code(s): C73 - MALIGNANT NEOPLASM OF THYROID GLAND Status: Chronic Priority: High Current Visit: Yes - Problem List Review Problem List Initiated/Reviewed/Updated: Yes - My Orders Last 24 Hours: My Active Orders 04/22/21 Breakfast Regular Diet [DIET] 04/22/21 07:30 Isolation [COMM] Routine 04/22/21 09:00 Famotidine [Pepcid] 20 mg PO DAILY Levothyroxine 75 mcg PO ACBREAKFAST Levothyroxine [Synthroid] 100 mcg PO ACBREAKFAST 04/22/21 09:03 CULTURE SPUTUM + SMEAR [RM] Routine 04/22/21 09:34 OT Evaluation and Treatment [CONS] Routine PT Evaluation and Treatment [CONS] Routine 04/22/21 17:00 cefTRIAXone [Rocephin] 2 gm Sodium Chloride 0.9% [Normal Saline] 100 ml IV Q24H 04/22/21 21:00 Dabrafenib Mesylate [Tafinlar] 0 mg PO BID 04/23/21 09:00 Trametinib Dimethyl Sulfoxide [Mekinist] 0 mg PO DAILY - Assessment Assessment:: The patient is an 85-year-old gentleman who is doing much better today. I have ordered a chest x-ray for the morning. I have also ordered repeat laboratory studies. The patient will be continued on DVT prophylaxis. Regular diet as tolerated. He has been encouraged to ambulate. PT OT evaluation has assessed the patient. The patient will likely be appropriate for discharge tomorrow on oral antibiotics. - Plan Plan:: The patient is an 85-year-old gentleman who had been admitted to acute hospitalization secondary to right lower lobe pneumonia. The patient has been started on ceftriaxone and this will be continued and adjusted as needed as the patient has been taking chemotherapy medications for his thyroid cancer. The wilian rivas's chemotherapy medications and the patient's Synthroid has been restarted. The patient will have regular diet as tolerated. I have also ordered physical therapy and Occupational Therapy to assess the patient. Repeat laboratory studies have been ordered for the morning. DVT prophylaxis is accomplished with Lovenox at 40 mg subcu daily. The patient has been encouraged to ambulate. He should be appropriate for discharge in 1 to 2 days. The patient is also in a full resuscitation code and is will be continued.
[2021-04-23] MEDS: Famotidine 20 MG Tab PO SCH (08:35)
[2021-04-23] MEDS ORDERED: TRAMETINIB DIMETHYL SULFOXIDE 2 MG PO SCH ×2 (09:00→11:00)
[2021-04-23] MEDS: DABRAFENIB MESYLATE 75 MG PO SCH ×2 (10:47→23:13)
[2021-04-23] MEDS: cefTRIAXone 2 GM in Sodium Chloride 0.9% 100 ML IV SCH (16:40)
[2021-04-23] MEDS: Enoxaparin 40 MG/0.4 ML Syringe SUBCUT SCH (23:12)
[2021-04-24] MEDS: Levothyroxine 100 MCG Tab PO SCH (06:22)
[2021-04-24] MEDS: Levothyroxine 75 MCG Tab PO SCH (06:23)
[2021-04-24] MEDS: Famotidine 20 MG Tab PO SCH (08:02)
--- NOTE | 2021-04-24 09:04 | PCM.DCSUM1 ---
Discharge Summary - Hospital Course HPI Initial Comments: The patient was admitted secondary to pneumonia right lower lobe. The patient had recovered sufficiently that he felt like he could go home. He has not required oxygen. Diagnosis: Stroke: No - Discharge Data Discharge Date: 04/24/21 Discharge Disposition: Home, Self-Care 01 Condition: Fair - Referral to Home Health Primary Care Physician: PCP Not In Area - Discharge Diagnosis/Problem(s) (1) Pneumonia SNOMED Code(s): 507570469 ICD Code: J18.9 - PNEUMONIA, UNSPECIFIED ORGANISM Status: Acute Priority: High Qualifiers: Pneumonia type: due to unspecified organism Laterality: right Lung location: lower lobe of lung Qualified Code(s): J18.9 - Pneumonia, unspecified organism (2) Thyroid cancer SNOMED Code(s): 075474120 ICD Code: C73 - MALIGNANT NEOPLASM OF THYROID GLAND Status: Chronic Priority: High - Patient Summary/Data Consults: Consultations 04/22/21 09:34 OT Evaluation and Treatment [CONS] Routine PT Evaluation and Treatment [CONS] Routine Hospital Course: The patient is an 85-year-old gentleman who had been admitted to acute hospitalization due to right lower lobe pneumonia. The patient's overall picture was complicated by having thyroid cancer with bony metastases and currently on oral chemotherapy agents. The patient was febrile initially at the emergency department and also was tachycardic. His pulse oximetry was low normal. The patient also follows up with [facility] with regards to his cancer treatment and also his heart issues. The patient had elevations of his troponins and his troponin in the emergency department is 0.195 and ER provider discussed with pharm tech on-call at [facility] and recommended echoc ardiogram. The patient's troponins remain plateaued when tested. The levels have all remained within 0.211 ng/mL to 0.194 ng/mL. The patient also reports that he has a pharm tech at [facility]. An echocardiogram was obtained during hospitalization. The patient has not required oxygen during his hospitalization. Initially the patient had been started on ceftriaxone at 2 g daily. He tolerated this well. Cultures were subsequently obtained and a few colony-forming units had grown out Aria albicans. This thought to be a colonization rather than infection. By day of discharge the patient had improved sufficiently that he felt like he could go home. The patient has been discharged from acute hospitalization with cefdinir 300 mg p.o. twice daily. He is to follow-up with his primary care physician as well as his oncologist. The patient should have continue with his diet as tolerated. He is also to have activity as tolerated. The patient has been hemodynamically stable and he is discharged from acute hospitalization with the recommendations listed above. - Patient Instructions Diet: Usual Diet as Tolerated Activity: As Tolerated - Discharge Plan *PRESCRIPTION DRUG MONITORING PROGRAM REVIEWED*: No *COPY OF PRESCRIPTION DRUG MONITORING REPORT IN PATIENT JENAE: No Prescriptions/Med Rec: Cefdinir [Omnicef] 300 mg PO BID #10 cap Home Medications: Home Meds Aspirin 81 mg PO DAILY 04/21/21 [History] Dabrafenib Mesylate [Tafinlar] 150 mg PO BID 04/21/21 [History] Famotidine 40 mg PO DAILY 04/21/21 [History] Levothyroxine 175 mcg PO ACBREAKFAST 04/21/21 [History] Trametinib Dimethyl Sulfoxide [Mekinist] 2 mg PO DAILY 04/21/21 [History] Ascorbic Acid 500 mg PO DAILY 04/23/21 [History] Benzoyl Peroxide [Benzoyl Peroxide 10% Lotion] 1 applic TOP DAILY PRN 04/23/21 [History] Ca/D3/Mag Ox/Zinc/Veterinary Virologist/Marcio/Bor [Calcium [id number] Chw Tb] 2 tab PO DAILY 04/23/21 [History] Clindamycin Phosphate [Cleocin T 1% Lotion] 1 applic TOP BID PRN 04/23/21 [History] Elocon 0.1% Cream 1 applic TOP BID PRN 04/23/21 [History] [place]-3/DHA/Epa/Fish Oil [[place]-3 Fish Oil 1,000 MG Sfgl] 1,000 mg PO DAILY 04/23/21 [History] Omeprazole 40 mg PO DAILY 04/23/21 [History] Vitamin E 400 units PO DAILY 04/23/21 [History] Cefdinir [Omnicef] 300 mg PO BID #10 cap 04/24/21 [Rx] Oxygen Therapy Mode: Room Air Patient Handouts: Community-Acquired Pneumonia, Adult, [id number], Sepsis, Self Care, Adult Forms: ED Department Discharge Referrals: Ddera Martinez MD [Ordering Only Provider] - 05/05/21 4:00 pm (The New Phone, Fax and Address for your appointment is: [phone] Fax Number [address] Phone [place], [place] Please arrive for check in at 3:45 p.m. and appt. is Central time.) - Discharge Summary/Plan Comment DC Time >30 min.: Yes - General Info Date of Service: 04/24/21 Admission Dx/Problem (Free Text: Admission Diagnosis/Problem Admission Diagnosis/Problem Pneumonia, RLL, on chemotherapy Subjective Update: Overall, the patient is doing better. He is denied any fever or chills. He is tolerating his diet. He feels like he can go home. Functional Status: Reports: Pain Controlled, Tolerating Diet - Review of Systems General: Reports: No Symptoms HEENT: Reports: No Symptoms Pulmonary: Reports: No Symptoms Cardiovascular: Reports: No Symptoms Gastrointestinal: Reports: No Symptoms Genitourinary: Reports: No Symptoms Musculoskeletal: Reports: No Symptoms Skin: Reports: No Symptoms Neurological: Reports: No Symptoms Psychiatric: Reports: No Symptoms - Patient Data Vitals - Most Recent: Last Vital Signs Temp 36.5 C 04/24/21 08:02 Pulse 85 04/24/21 08:02 Resp 14 04/24/21 08:02 BP 152/82 H 04/24/21 08:02 Pulse Ox 95 04/24/21 08:02 Weight - Most Recent: 66.678 kg I&O - Last 24 hours: Intake & Output 04/23/21 04/24/21 04/24/21 22:59 06:59 14:59 Intake Total 632 900 Output Total 700 Balance 632 200 Lab Results - Last 24 hrs: Laboratory Results - last 24 hr 04/24/21 04/24/21 Range/Units 04:55 04:55 WBC 3.85 L (4.23-9.07) K/mm3 RBC 4.10 L (4.63-6.08) M/mm3 Hgb 10.6 L (13.7-17.5) gm/dl Hct 34.0 L (40.1-51.0) % MCV 82.9 (79.0-92.2) fl MCH 25.9 (25.7-32.2) pg MCHC 31.2 L (32.2-35.5) g/dl RDW Std Deviation 56.3 H (35.1-43.9) fL Plt Count 162 L (163-337) K/mm3 MPV 9.9 (9.4-12.3) fl Neut % (Auto) 62.0 (34.0-67.9) % Lymph % (Auto) 17.7 L (21.8-53.1) % [place] % (Auto) 20.0 H (5.3-12.2) % Eos % (Auto) 0.3 L (0.8-7.0) Baso % (Auto) 0.0 L (0.1-1.2) % Neut # (Auto) 2.39 (1.78-5.38) K/mm3 Lymph # (Auto) 0.68 L (1.32-3.57) K/mm3 [place] # (Auto) 0.77 (0.30-0.82) K/mm3 Eos # (Auto) 0.01 L (0.04-0.54) K/mm3 Baso # (Auto) 0.00 L (0.01-0.08) K/mm3 Manual Slide Review Abnormal smear Sodium 137 (136-145) mEq/L Potassium 4.0 (3.5-5.1) mEq/L Chloride 102 (98-107) mEq/L Carbon Dioxide 28 (21-32) mEq/L Anion Gap 11.0 (5-15) BUN 19 H (7-18) mg/dL Creatinine 1.1 (0.7-1.3) mg/dL Est Cr Clr Drug Dosing 47.15 mL/min Estimated GFR (MDRD) > 60 (>60) mL/min BUN/Creatinine Ratio 17.3 (14-18) Glucose 121 H (70-99) mg/dL Calcium 8.3 L (8.5-10.1) mg/dL Magnesium 1.9 (1.8-2.4) mg/dL Total Bilirubin 0.4 (0.2-1.0) mg/dL AST 21 (15-37) U/L ALT 19 (16-63) U/L Alkaline Phosphatase 99 (46-116) U/L C-Reactive Protein 3.8 H* (<1.0) mg/dL Total Protein 6.3 L (6.4-8.2) g/dl Albumin 2.7 L (3.4-5.0) g/dl Globulin 3.6 gm/dL Albumin/Globulin Ratio 0.8 L (1-2) LOLA Results - Last 24 hrs: Microbiology 04/22/21 09:03 Gram Stain - Final Sputum - Expectorated Sputum Culture - Final Aria Albicans 04/21/21 16:55 Aerobic Blood Culture - Preliminary Blood - Venous NO GROWTH AFTER 2 DAYS Anaerobic Blood Culture - Preliminary NO GROWTH AFTER 2 DAYS 04/21/21 16:45 Aerobic Blood Culture - Preliminary Blood - Venous - Lab Draw NO GROWTH AFTER 2 DAYS Anaerobic Blood Culture - Preliminary NO GROWTH AFTER 2 DAYS Med Orders - Current: Current Medications Enoxaparin Sodium (Enoxaparin 40 Mg/0.4 Ml Syringe) 40 mg SUBCUT Q24H [facility] Last Admin: 04/23/21 23:12 Dose: 40 mg Documented by: Famotidine (Famotidine 20 Mg Tab) 20 mg PO DAILY [facility] Last Admin: 04/24/21 08:02 Dose: 20 mg Documented by: Ceftriaxone Sodium 2 gm/ (Sodium Chloride) 100 mls @ 200 mls/hr IV Q24H [facility] Last Admin: 04/23/21 16:40 Dose: 200 mls/hr Documented by: Levothyroxine Sodium (Levothyroxine 100 Mcg Tab) 100 mcg PO ACBREAKFAST [facility] Last Admin: 04/24/21 06:22 Dose: 100 mcg Documented by: Levothyroxine Sodium (Levothyroxine 75 Mcg Tab) 75 mcg PO ACBREAKFAST [facility] Last Admin: 04/24/21 06:23 Dose: 75 mcg Documented by: Trametinib Dimethyl Sulfoxide [Mekinist] 2 Mg Tab Ptom 0 mg PO 1100 [facility] Last Admin: 04/23/21 10:48 Dose: 2 mg Documented by: Dabrafenib Mesylate [Tafinlar] 75 Mg Cap Ptom 0 mg PO Q12H [facility] Last Admin: 04/23/21 23:13 Dose: 150 mg Documented by: Sodium Chloride (Sodium Chloride 0.9% 10 Ml Syringe) 10 ml FLUSH ASDIRECTED PRN PRN Reason: Keep Vein Open Last Admin: 04/21/21 17:10 Dose: 10 ml Documented by: Discontinued Medications Acetaminophen (Acetaminophen 325 Mg Tab) 650 mg PO NOW ONE Stop: 04/21/21 16:56 Last Admin: 04/21/21 17:10 Dose: 650 mg Documented by: Enoxaparin Sodium (Enoxaparin 30 Mg/0.3 Ml Syringe) 30 mg SUBCUT Q24H [facility] Lactated Ringer's (Ringers, Lactated) 1,000 mls @ 75 mls/hr IV ASDIRECTED [facility] Last Admin: 04/21/21 17:10 Dose: 126 mls/hr Documented by: Ceftriaxone Sodium 2 gm/ (Sodium Chloride) 100 mls @ 200 mls/hr IV ONETIME ONE Stop: 04/21/21 17:43 Last Admin: 04/21/21 17:28 Dose: 200 mls/hr Documented by: Sodium Chloride (Normal Saline) 100 mls @ 60 mls/hr IV ASDIRECTED [facility] Last Admin: 04/21/21 18:59 Dose: 60 mls/hr Documented by: Iopamidol (Iopamidol 755 Mg/Ml 100 Ml Bottle) 100 ml IVPUSH ONETIME ONE Stop: 04/21/21 18:53 Last Admin: 04/21/21 18:59 Dose: 100 ml Documented by: Dabrafenib Mesylate [Tafinlar] 75 Mg Cap Ptom 0 mg PO BID [facility] Last Admin: 04/22/21 22:45 Dose: 150 mg Documented by: Trametinib Dimethyl Sulfoxide [Mekinist] 2 Mg Tab Ptom 0 mg PO DAILY [facility] Sodium Chloride (Sodium Chloride 0.9% 10 Ml Syringe) 10 ml FLUSH ASDIRECTED [facility] Last Admin: 04/21/21 18:59 Dose: 10 ml Documented by: - Exam Quality Assessment: Denies: Supplemental Oxygen General: Reports: Alert, Oriented, Cooperative HEENT: Reports: Pupils Equal, Pupils Reactive, EOMI, Mucous Membr. Moist/[place] Neck: Reports: Trachea Midline. Denies: Supple (Severe postsurgical changes) Lungs: Reports: Clear to Auscultation, Normal Respiratory Effort Cardiovascular: Reports: Regular Rate, Regular Rhythm GI/Abdominal Exam: Normal Bowel Sounds, Soft, Non-Tender, No Distention (Male) Exam: Deferred Rectal (Males) Exam: Deferred Back Exam: Reports: Normal Inspection, Full Range of Motion Extremities: Normal Inspection, Normal Range of Motion, No Pedal Edema Skin: Reports: Warm, Dry, Intact Neurological: Reports: No New Focal Deficit Psy/Mental Status: Reports: Alert, Normal Affect
--- NOTE | 2021-04-24 09:22 | CR ---
Chest: 2 views of the chest were obtained. Comparison: Prior chest x-ray 04/21/[address] also performed on 04/21/21. Patchy areas of increased density are seen within both lung bases. Findings on the left side are slightly more prominent than seen on prior exams. Findings on the right side show improvement. Upper lungs are clear. Multiple small nodules seen on the chest CT are not well identified on plain film study. Heart size is normal. Tortuous thoracic aorta is noted. Scattered degenerative spurring is noted within the spine. Surgical clips are seen within the upper abdomen. Impression: 1. Slight increasing density within the left base and improving density within the right base. 2. Other findings believed to be stable as noted above. Diagnostic code #3
== END 2021-04-24 11:04 | disposition home or self-care (01) | DRG 194 ==
LOC: JD.ED 15:02 → JD.MS 20:00
PROVIDERS: ADMIT Internal Medicine; ATTEND Internal Medicine
DX: J18.9 Pneumonia, unspecified organism (principal); C79.51 Secondary malignant neoplasm of bone; C73 Malignant neoplasm of thyroid gland; E03.9 Hypothyroidism, unspecified; Z96.649 Presence of unspecified artificial hip joint; Z79.899 Other long term (current) drug therapy; R32 Unspecified urinary incontinence; R53.1 Weakness; Z96.659 Presence of unspecified artificial knee joint; Z20.822 Contact with and (suspected) exposure to COVID-19; R77.8 Other specified abnormalities of plasma proteins; Z79.82 Long term (current) use of aspirin; Z79.890 Hormone replacement therapy; R06.02 Shortness of breath
CPT/HCPCS: 36415; 71045; 71275; 80053; 81001; 83605; 83880; 84484 ×2; 85007; 85027; 85379; 85610; 85730; 86140; 87040 ×2; 93005; 96365; 99285; A9270; J0696; J7120; Q9967; U0002; 71046; 71046-26; 83735; 85025; 87070; 87106; 87205; 93010; 93306; 97110-GP; 97116-GP; 97161-GP; 97165-GO; 97530-GO; 99222; 99232; 99239; J1650